=== PATIENT | female | born 1945 | race African-American/Black ===

== ENCOUNTER → 2024-05-08 09:53 | Outpatient (REF) | payer OTHER, SELFPAY | LOC: WDC 09:53 | PROVIDERS: ATTENDING PHYSICIAN Nurse Practitioner Adult Health; FAMILY PHYSICIAN Family Medicine | DX: N64.4 Mastodynia (principal) | CPT/HCPCS: 76642; 77061; 77065 ==

== ENCOUNTER → 2024-05-13 10:51 | Outpatient (REF) | payer OTHER, SELFPAY | LOC: HWRCS 10:51 | PROVIDERS: ATTENDING PHYSICIAN Nuclear Medicine Nuclear Cardiology; FAMILY PHYSICIAN Family Medicine | DX: I10 Essential (primary) hypertension (principal); I48.0 Paroxysmal atrial fibrillation; E11.9 Type 2 diabetes mellitus without complications; R06.02 Shortness of breath | CPT/HCPCS: 93306 ==

== ENCOUNTER → 2024-06-07 10:48 | Outpatient (REF) | payer OTHER, SELFPAY ==
[2024-06-07 16:00] LABS: % Basophils 0.5 % (0-2); % Eosinophils 0.9 % (0-6); % Immature Granulocytes 0.9 % (0-0.5); % Lymphocytes 25.6 % (20.5-51.1); % Monocytes 8.7 % (1.7-9.3); % Neutrophils 63.4 % (42.2-75.2); Absolute Eosinophils 0.1 10^3/uL (0-0.7); Absolute Immature Granulocytes 0.1 10^3/uL (0-0.05); Absolute Lymphocytes 1.5 10^3/uL (1.2-3.4); Absolute Monocytes 0.5 10^3/uL (0.1-0.6); Absolute Neutrophils 3.7 10^3/uL (1.4-6.5); Hemoglobin 8.6 g/dL (12.0-16.0); Mean Corp Hgb Conc. 30.7 g/dL (33.0-37.0); Mean Corpuscular Hgb 24.3 pg (27.0-31.0); Mean Corpuscular Volume 79.1 fL (81.0-99.0); Mean Platelet Volume 9.4 fL (7.4-10.4); Nucleated Red Blood Cells % 0 %; Platelet Count 454 10^3/uL (130-400); Red Blood Cell Count 3.54 10^6/uL (4.20-5.40); Red Cell Dist. Width 15.7 % (11.5-14.5); White Blood Cell Count 5.8 10^3/uL (4.8-10.8)
[2024-06-07 16:14] LABS: ALT (SGPT) 16 U/L (0-35); AST (SGOT) 20 U/L (14-36); Alkaline Phosphatase 78 U/L (38-126); Blood Urea Nitrogen 20 mg/dl (7-17); Calcium 10.8 mg/dl (8.4-10.2); Carbon Dioxide 28 mmol/L (22-30); Chloride 101 mmol/L (98-107); Glucose 179 mg/dl (70-99); Iron 34 ug/dl (37-170); Potassium 4.2 mmol/L (3.5-5.1); Sodium 139 mmol/L (135-145); Total Bilirubin 0.2 mg/dl (0.2-1.3); Total Protein 6.5 g/dl (6.3-8.2); eGFR > 60.00
[2024-06-07 16:23] LABS: Percent Saturation 9 % (20-50); Total Iron Binding Capacity 362 ug/dl (265-497)
[2024-06-07 16:46] LABS: Ferritin 8.4 ng/ml (11.1-264.0)
== END ==
LOC: HWLAB 10:48
PROVIDERS: ATTENDING PHYSICIAN Internal Medicine Hematology & Oncology; FAMILY PHYSICIAN Family Medicine
DX: C50.512 Malignant neoplasm of lower-outer quadrant of left female breast (principal); D50.9 Iron deficiency anemia, unspecified; E55.9 Vitamin D deficiency, unspecified
CPT/HCPCS: 36415; 80053; 82728; 83540; 83550; 85025

== ENCOUNTER → 2024-06-10 13:17 | Outpatient (REF) | payer OTHER, SELFPAY | LOC: HWRAD 13:17 | PROVIDERS: ATTENDING PHYSICIAN Pain Medicine Interventional Pain Medicine; FAMILY PHYSICIAN Family Medicine | DX: M54.16 Radiculopathy, lumbar region (principal) | CPT/HCPCS: 72131 ==

== ENCOUNTER → 2024-06-20 14:06 | Outpatient (REF) | payer OTHER, SELFPAY ==
[2024-06-20 14:10] LABS: % Basophils 0.2 % (0-2); % Eosinophils 0.7 % (0-6); % Immature Granulocytes 0.1 % (0-0.5); % Lymphocytes 19.4 % (20.5-51.1); % Monocytes 8.7 % (1.7-9.3); % Neutrophils 70.9 % (42.2-75.2); Absolute Eosinophils 0.1 10^3/uL (0-0.7); Absolute Lymphocytes 1.6 10^3/uL (1.2-3.4); Absolute Monocytes 0.7 10^3/uL (0.1-0.6); Hematocrit 29.5 % (37.0-47.0); Mean Corp Hgb Conc. 30.5 g/dL (33.0-37.0); Mean Corpuscular Hgb 24.5 pg (27.0-31.0); Mean Corpuscular Volume 80.2 fL (81.0-99.0); Mean Platelet Volume 8.4 fL (7.4-10.4); Platelet Count 489 10^3/uL (130-400); Red Blood Cell Count 3.68 10^6/uL (4.20-5.40); Red Cell Dist. Width 15.7 % (11.5-14.5); White Blood Cell Count 8.4 10^3/uL (4.8-10.8)
[2024-06-20 14:48] LABS: Iron 36 ug/dl (37-170)
[2024-06-20 14:57] LABS: Percent Saturation 9 % (20-50); Total Iron Binding Capacity 389 ug/dl (265-497)
[2024-06-20 15:25] LABS: Ferritin 5.8 ng/ml (11.1-264.0)
== END ==
LOC: OIDL 14:06
PROVIDERS: ATTENDING PHYSICIAN Internal Medicine Hematology & Oncology
DX: C50.512 Malignant neoplasm of lower-outer quadrant of left female breast (principal)
CPT/HCPCS: 82728; 83540; 83550; 85025

== ENCOUNTER → 2024-06-27 14:22 | Outpatient (REF) | payer OTHER, SELFPAY ==
[2024-06-27 14:44] LABS: % Basophils 0.4 % (0-2); % Eosinophils 1.3 % (0-6); % Immature Granulocytes 0.3 % (0-0.5); % Lymphocytes 17.3 % (20.5-51.1); % Monocytes 8.1 % (1.7-9.3); % Neutrophils 72.6 % (42.2-75.2); Absolute Eosinophils 0.1 10^3/uL (0-0.7); Absolute Lymphocytes 1.4 10^3/uL (1.2-3.4); Absolute Monocytes 0.6 10^3/uL (0.1-0.6); Absolute Neutrophils 5.8 10^3/uL (1.4-6.5); Hematocrit 29.3 % (37.0-47.0); Mean Corp Hgb Conc. 30.7 g/dL (33.0-37.0); Mean Corpuscular Hgb 25.7 pg (27.0-31.0); Mean Corpuscular Volume 83.7 fL (81.0-99.0); Mean Platelet Volume 9.2 fL (7.4-10.4); Nucleated Red Blood Cells % 0 %; Platelet Count 437 10^3/uL (130-400); Red Cell Dist. Width 18.3 % (11.5-14.5); White Blood Cell Count 7.9 10^3/uL (4.8-10.8)
== END ==
LOC: OIDL 14:22
PROVIDERS: ATTENDING PHYSICIAN Internal Medicine Hematology & Oncology
DX: C50.512 Malignant neoplasm of lower-outer quadrant of left female breast (principal); D50.9 Iron deficiency anemia, unspecified
CPT/HCPCS: 85025

== ENCOUNTER 2024-07-15 06:32 | Day surgery (SDC) | payer OTHER, SELFPAY ==
[2024-07-15 11:59] VITALS: BMI 43.2
[2024-07-15 12:00] VITALS: BP 167/96; BMI 43.2
[2024-07-15 12:34] LABS: Glucose - Point of Care 101 mg/dl (70-99)
[2024-07-15 14:03] VITALS: BP 104/52
[2024-07-15 14:15] VITALS: BP 121/55
[2024-07-15 14:22] VITALS: BP 127/102
[2024-07-15 14:24] VITALS: BP 126/62
== END 2024-07-15 14:40 | disposition home or self-care (01) ==
LOC: SDS 06:32
PROVIDERS: ATTENDING PHYSICIAN Internal Medicine
PROC: 0DB98ZX Excision of Duodenum, Via Natural or Artificial Opening Endoscopic, Diagnostic (ICD-10-PCS; 2024-07-15)
PROC: 0DB68ZX Excision of Stomach, Via Natural or Artificial Opening Endoscopic, Diagnostic (ICD-10-PCS; 2024-07-15)
DX: K31.7 Polyp of stomach and duodenum (principal); D50.9 Iron deficiency anemia, unspecified
CPT/HCPCS: 43239; 88305; 82962; 88342

== ENCOUNTER → 2024-08-23 11:11 | Outpatient (REF) | payer OTHER, SELFPAY | LOC: WDC 11:11 | PROVIDERS: ATTENDING PHYSICIAN Nurse Practitioner Adult Health; FAMILY PHYSICIAN Family Medicine | DX: Z12.31 Encounter for screening mammogram for malignant neoplasm of breast (principal) | CPT/HCPCS: 77063; 77067 ==

== ENCOUNTER 2024-12-23 10:36 | Emergency (ER) | payer OTHER, SELFPAY ==
[2024-12-23 10:41] VITALS: BP 165/78
--- NOTE | 2024-12-23 12:24 | ED.GENMED ---
History of Present Illness
General
Chief Complaint: Female Acute Care Physical Therapist/Gu symptoms
Time Seen by Provider: 12/23/24 11:31
History of Present Illness
History of Present Illness:
79-year-old female with history of diabetes presenting to the emergency department for concern of abscess. Patient reports swelling and discomfort to the right groin region. Notes that she had an abscess in that region several years ago that
required drainage. Notes some discomfort to the area. Last night, the area open, has been draining some fluid. She called her doctor who advised to come to the hospital. Denies any change in her blood sugar. Denies any abdominal pain, nausea,
vomiting, fever. Denies any additional acute medical complaints.
Past History
Past History
ED Past Medical History: Arrthythmia (Atrial fibrillation), Asthma, GERD, HTN, Hypercholesterolemia, NIDDM and Other (sleep apnea, paralyzed diaphragm right sided, GI bleeding. PNA, IBS)
ED Past Surgical History: Cholecystectomy, Gynecological (OOphorectomy ?L), Orthopedic (Right and left total hips) and Other (Polyps removed)
Social History
Tobacco: Non-smoker
Alcohol: None
Drug: None
Personal:
Living: with family
Phy Exam
Physical Exam
Physical Exam:
General: Well-appearing, no clinical signs of dehydration, nontoxic and in no acute distress
HEENT: protecting airway
Neck: appears supple
CV: Normal heart rate
Resp: No accessory muscle use, no increased work of breathing
Abd: No distention
Extremities: No deformities, no swelling
Neuro: alert, no focal neurologic deficit
: Small area of induration at the right inguinal region. No erythema. Central area that is open. No fluctuance. No purulence
Rectal: deferred
Psych: Normal affect
Skin: Intact
Course
Orders/Labs/Results
Orders:
Orders
12/23/24 12:05
Cephalexin Monohydrate [Keflex] 500 mg PO NOW STA
12/23/24 12:23
Bedside Glucose- Treatment ONCE
Abnormal Lab Results
12/23/24
12:23
POC Glucose 126 H mg/dl
(70-99)
12/23/24 12:05
Vital Signs
Initial and Last Documented VS:
Initial Vital Signs
Temp Pulse Resp BP Pulse Ox
98.4 F 82 18 165/78 96
12/23/24 10:41 12/23/24 10:41 12/23/24 10:41 12/23/24 10:41 12/23/24 10:41
Last Documented Vital Signs
Temp Pulse Resp BP Pulse Ox
98.4 F 82 18 165/78 96
12/23/24 10:41 12/23/24 10:41 12/23/24 10:41 12/23/24 10:41 12/23/24 10:41
MDM/Problems Addressed
MDM/Problems Addressed:
79-year-old female with history of diabetes presenting for concern of abscess to the right groin. Vital signs are significant for mild hypertension.
On exam patient is resting comfortably, no acute distress or discomfort. Evaluation of the groin, there is a small area of induration, consistent with developing abscess collection. No fluctuance on palpation. No active drainage, however is open.
Is not currently a candidate for incision and drainage given no palpable fluid collection. Patient has been using warm compresses, which I advised she continue. No crepitus to the area or extension into the abdomen or vaginal region. No concern
for Aguila's. Will start on antibiotic. Advised continued use of warm compresses. Will start on cephalexin. Return precautions communicated and patient verbalized understanding
*Critical Care Note
Total Time (30-74mins, 75-104mins- exclusive of procedures): Not Applicable
ED Attending Note
-
Portions of this chart may have been created with voice recognition software.� Occasional wrong word or��sound alike� substitutions may have occurred due to the inherent limitations of voice recognition software.
Discharge Plan
Departure
Prescriptions:
No Action
candesartan 8 MG tablet
16 mg PO HS
metformin 500 MG tablet
1,000 mg PO HS
esomeprazole magnesium [Nexium] 40 MG capsule,delayed release(DR/EC)
40 mg PO HS
diltiazem HCl 180 MG capsule,extended release 24hr
180 mg PO HS
olopatadine [Patanase] 30.5 GM spray,non-aerosol
2 spray intranasal BID Qty: 0
Xarelto 20 MG tablet
20 mg PO HS Qty: 0
ezetimibe 10 MG tablet
10 mg PO HS
cetirizine [Zyrtec] 10 mg Tablet
10 mg PO HS
fluticasone furoate-vilanterol [Breo Ellipta] 200-25 mcg/dose Blister With Device
1 inh INHALATION DAILY
letrozole 2.5 mg Tablet
2.5 mg PO DAILY
Referrals:
Florence Sotelo DO [Family Provider] -
Interventions
Interventions:
*Risk Screen - Suicide Last Done: 12/23/24 10:41
*General Assessment Last Done: 12/23/24 10:41
*Neglect/Abuse Screening Last Done: 12/23/24 10:41
*ED COVID-19 Vaccine History Last Done: 12/23/24 12:27
Discharge Date and Time
Print Language: SYRIAN
[2024-12-23 12:25] LABS: Glucose - Point of Care 126 mg/dl (70-99)
[2024-12-23 12:26] VITALS: BMI 42.4
[2024-12-23] MEDS: KEFLEX 500 MG PO (12:27)
[2024-12-23 12:29] VITALS: BP 143/65
== END 2024-12-23 12:55 | disposition home or self-care (01) ==
LOC: EMR 10:36
PROVIDERS: EMERGENCY PHYSICIAN Student in an Organized Health Care Education/Training Program; FAMILY PHYSICIAN Family Medicine
DX: L02.214 Cutaneous abscess of groin (principal); I48.91 Unspecified atrial fibrillation; J45.909 Unspecified asthma, uncomplicated; K21.9 Gastro-esophageal reflux disease without esophagitis; I10 Essential (primary) hypertension; E78.00 Pure hypercholesterolemia, unspecified; E11.9 Type 2 diabetes mellitus without complications; G47.30 Sleep apnea, unspecified; J98.6 Disorders of diaphragm; K58.9 Irritable bowel syndrome, unspecified
CPT/HCPCS: 99282; 82962

== ENCOUNTER → 2025-03-17 15:52 | Outpatient (REF) | payer OTHER, SELFPAY ==
[2025-03-17 14:31] LABS: % Basophils 0.2 % (0-2); % Eosinophils 1.4 % (0-6); % Immature Granulocytes 0.1 % (0-0.5); % Monocytes 8.2 % (1.7-9.3); % Neutrophils 68.1 % (42.2-75.2); Absolute Eosinophils 0.1 10^3/uL (0-0.7); Absolute Lymphocytes 1.8 10^3/uL (1.2-3.4); Absolute Monocytes 0.7 10^3/uL (0.1-0.6); Absolute Neutrophils 5.7 10^3/uL (1.4-6.5); Hematocrit 32.7 % (37.0-47.0); Hemoglobin 10.3 g/dL (12.0-16.0); Mean Corp Hgb Conc. 31.5 g/dL (33.0-37.0); Mean Corpuscular Hgb 26.9 pg (27.0-31.0); Mean Corpuscular Volume 85.4 fL (81.0-99.0); Mean Platelet Volume 8.5 fL (7.4-10.4); Platelet Count 422 10^3/uL (130-400); Red Blood Cell Count 3.83 10^6/uL (4.20-5.40); Red Cell Dist. Width 14.6 % (11.5-14.5); White Blood Cell Count 8.3 10^3/uL (4.8-10.8)
[2025-03-17 17:25] LABS: Vitamin D, 25-OH*** 20.5 ng/mL (30-80)
== END ==
LOC: OIDL 15:52
PROVIDERS: ATTENDING PHYSICIAN Internal Medicine Hematology & Oncology
DX: C50.512 Malignant neoplasm of lower-outer quadrant of left female breast (principal); D50.9 Iron deficiency anemia, unspecified; E55.9 Vitamin D deficiency, unspecified
CPT/HCPCS: 82306; 85025

== ENCOUNTER 2025-03-19 22:07 | Emergency (ER) | payer OTHER, SELFPAY ==
[2025-03-19 22:09] VITALS: BP 177/90
[2025-03-19 23:42] VITALS: BP 178/76; BMI 41.2
--- NOTE | 2025-03-20 00:11 | ED.GENMED ---
History of Present Illness
General
Chief Complaint: Headache
Source: patient
Exam Limitations: none
Time Seen by Provider: 03/19/25 23:54
Nursing documentation reviewed up to this point in time: agreed with
History of Present Illness
History of Present Illness:
SEE mdm
Past History
Past History
ED Past Medical History: Arrthythmia (Atrial fibrillation), Asthma, GERD, HTN, Hypercholesterolemia, NIDDM and Other (sleep apnea, paralyzed diaphragm right sided, GI bleeding. PNA, IBS)
ED Past Surgical History: Cholecystectomy, Gynecological (OOphorectomy ?L), Orthopedic (Right and left total hips) and Other (Polyps removed)
Social History
Tobacco: Non-smoker
Alcohol: None
Drug: None
Personal:
Living: with family
Review of Systems
Review of Systems
Allergies reviewed?: Yes
All Other Systems: Not applicable
Phy Exam
Physical Exam
Physical Exam:
GENERAL: Alert , in no apparent distress
HEAD: NCAT
no scalp tenderness;
EYE: pupils equal and reactive, no nystagmus, NO photophobia
proptosis b/l (chronic_)
NECK: Supple,full rom, nontender
ENT: o/p clr, mmm.
CARDIAC: Regular rate and rhythm . no edema
LUNGS: Clear breath sounds bilaterally, no acute respiratory distress, no wheezes/rales/rhonchi
ABDOMEN: Soft, without focal tenderness, no r/g, no cvat
NEUROLOGICAL: Alert and orientedx 4, cn intact, no facial asymmetry, 5/5 strength in UE/LE, sensation intact, romberg neg, ambulates without assistance, neg pronator drift
SKIN: Warm and dry, skin intact.
MUSCULOSKELETAL: No edema, well perfused.
PSYCH: Normal and appropriate interaction.
Course
Orders/Labs/Results
Orders:
Orders
03/20/25 00:14
CT Head W/o Iv Contrast Urgent
Comment:
Reason For Exam: aura with R sinus pressure
03/20/25 00:15
Electrocardiogram (*1) Urgent
Reason for Study: TIA/Stroke
EKG- Treatment ONCE
03/20/25 00:55
Visual Acuity- Treatment ONCE
03/20/25 01:10
Complete Blood Count/With Diff Urgent
Comprehensive Metabolic Panel Urgent
Abnormal Lab Results
03/20/25
01:10
RBC 3.94 L 10^6/uL
(4.20-5.40)
Hgb 10.7 L g/dL
(12.0-16.0)
Hct 32.9 L %
(37.0-47.0)
MCHC 32.5 L g/dL
(33.0-37.0)
RDW 14.9 H %
(11.5-14.5)
Plt Count 425 H 10^3/uL
(130-400)
Absolute Monos (auto) 0.8 H 10^3/uL
(0.1-0.6)
Lymphocytes % 20.4 L %
(20.5-51.1)
Chloride 108 H mmol/L
(98-107)
Glucose 126 H mg/dl
(70-99)
03/20/25 01:10
03/20/25 01:10
Vital Signs
Initial and Last Documented VS:
Initial Vital Signs
Temp Pulse Resp BP Pulse Ox
37.2 C 85 16 177/90 98
03/19/25 22:09 03/19/25 22:09 03/19/25 22:09 03/19/25 22:09 03/19/25 22:09
Last Documented Vital Signs
Temp Pulse Resp BP Pulse Ox
36.6 C 77 18 137/60 96
03/20/25 02:39 03/20/25 02:39 03/20/25 02:39 03/20/25 02:39 03/20/25 02:39
MDM/Problems Addressed
Differential Diagnosis Includes:
see MDM
MDM/Problems Addressed:
Note:
CHIEF COMPLAINT(S)
Ocular auras without headache; recent episodes of persistent auras.
HISTORY OF PRESENT ILLNESS
The patient is an 80-year-old female with a past medical history of migraines since adolescence (formerly got aura with pain, but for years has just gotten aura as squiggly white lines without pain. She reports 3 different episodes of aura lasting
10 minutes over the past 3 days which is unusual fo rher to have so many so frequently; the most recent one was this evening around 830 pm when she was home with family about to ty. These auras last around 10 minutes and involve seeing
squiggly lines, but do not result in complete vision loss The patient denies new headaches but reports nasal congestion and sinus pressure, has had previous sinus surgery and is alway scongested but she feels it is worse than usual recently;
no changes to medications. Shes taking letrozole for breast cancer, currently in remission for four years. She manages sinus issues with allergy medication. Additional history includes paroxysmal atrial fibrillation managed with blood thinners and
diabetes with stable glucose control.
SOCIAL DETERMINANTS AFFECTING HEALTH
According to the patient, her episodes coincide with familial activities around the house involving grandchildren, which may contribute to stress or distraction.
CHRONIC MEDICAL CONDITIONS SIGNIFICANTLY AFFECTING CARE
Chronic conditions affecting care: migraine history, atrial fibrillation, diabetes, and history of breast cancer.
ALLERGIES
The patient reports unspecified drug allergies.
PAST MEDICAL HISTORY
History of migraines, atrial fibrillation, diabetes, and breast cancer.
PAST SURGICAL HISTORY
Cataract surgery and previous sinus surgery.
SOCIAL HISTORY
The patient resides in a home and describes increased sinus pressures related to home layout changes, suggesting frequent home mobility.
MEDICATIONS
Letrozole for breast cancer; anticoagulant (unspecified); allergy medications.
REVIEW OF SYSTEMS
- Neurological: Reports vision disturbances (auras), no new headache.
- Cardiovascular: History of atrial fibrillation, no new palpitations reported.
- Gastrointestinal: Occasional diarrhea associated with episodes.
- Respiratory: Denies current respiratory infection but reports chronic nasal congestion and sinus pressure.
- Musculoskeletal: Undergoing physical therapy for rotator cuff tendinitis and hip issues.
PHYSICAL EXAM
- Nursing notes reviewed and vital signs reviewed.
- Neurological: No acute deficits observed by the patient during aura episodes.
- Ocular: Reports squiggly vision lines, primarily affecting the right eye.
DIFFERENTIAL DIAGNOSIS
The Differential Diagnosis includes, in no particular order and is not limited to:
1. Migraine with aura
2. Retinal migraine
3. Transient ischemic attack
4. Sinusitis
5. Visual disturbances secondary to medication or stress
6. Cluster headaches
7. Ophthalmic disorders such as vitreous detachment
8. Acute angle-closure glaucoma
9. Anxiety-related visual disturbances
10. Atrial fibrillation-related embolic events
PLAN
Further evaluation with ophthalmic examination and consider ophthalmological consultation. Assess need for imaging studies to rule out intracranial pathology. Review and possibly adjust current medications, including anticoagulation therapy, in
context of visual symptoms. Evaluate for possible sinus infection or exacerbation. Provide patient education on monitoring symptoms and seeking timely follow-up if symptoms persist or worsen.
03/20/2025 0054 AM
pressure R eye is 13, L eye is 10
EKG SINUS RHYUTHM, RBBB, NO ISCHEMIA
case d/w ed attending
h/o migraines with floaters/aura for years
but since teens she really doesn't get pains, just floating lights
her neuro exam is normal
eye exam unremarkable, normal vision, normal pressures
ct head neg
labs reassuring
not in afib and already anticoagulated
pt is anxious
feels reassured
sinus congestion more than usual; will cover with abx;
not concerned for GCA but recommend f/u with pcp
*Pulse Oximetry
SaO2: 98
Oxygen Mode of Delivery: Room air
Patient hypoxic: no (96)
*Critical Care Note
Total Time (30-74mins, 75-104mins- exclusive of procedures): Not Applicable
ED Attending Note
-
Portions of this chart may have been created with voice recognition software.� Occasional wrong word or��sound alike� substitutions may have occurred due to the inherent limitations of voice recognition software.
Discharge Plan
Departure
Patient Disposition: Home (Routine Discharge)
Date of Disposition: 03/20/25
Time of Disposition: 02:07
Patient with high blood pressure during this ER visit?: Yes
Condition: Fair
Covid-19: Not Applicable
Discharge Problem:
Floaters, Sinusitis
Instructions: Migraines (DC), Sinusitis in adults - ED discharge instructions
Prescriptions:
New
doxycycline hyclate 100 mg capsule
100 mg PO BID Qty: 14 0RF
No Action
esomeprazole magnesium [Nexium] 40 MG capsule,delayed release(DR/EC)
40 mg PO HS
diltiazem HCl 180 MG capsule,extended release 24hr
180 mg PO HS
ezetimibe 10 MG tablet
10 mg PO HS
cetirizine [Zyrtec] 10 mg Tablet
10 mg PO HS
fluticasone furoate-vilanterol [Breo Ellipta] 200-25 mcg/dose Blister With Device
1 inh INHALATION DAILY
metformin 1,000 mg Tablet
1,000 mg PO HS
candesartan 16 mg Tablet
8 mg PO HS
letrozole 2.5 mg Tablet
2.5 mg PO DAILY
olopatadine [Patanase] 0.6 % [place],Non-Aerosol
2 spray INTRANASAL BID
Xarelto 20 mg Tablet
20 mg PO HS
Referrals:
Florence Sotelo DO [Family Provider, Family Practice] - Follow up in 2-3 days
Activity Restrictions/Additional Instructions:
You should follow-up with your family doctor this week regarding your aura/headaches. Your vision was normal and your eye pressure was also normal. The CAT scan did not show any findings. Your blood pressure improved without intervention. You
had no signs of any concerning abnormalities on blood work. Your anemia is stable. Please make sure to try Tylenol if you develop a headache with the aura. It sounds like it is part of your migraine. Because of the increased congestion over the
last couple weeks I am going to prescribe your doxycycline that you can take twice a day for 7 days. Continue to use your nasal sprays and allergy medication. Return for significant worsening of symptoms, worst headache, vision loss or vision
changes, nausea or vomiting, numbness or tingling in your face arms or legs or any concerns
You can also make sure you see an eye doctor to have a more in-depth retinal exam
Interventions
Interventions:
*Risk Screen - Suicide Last Done: 03/19/25 22:09
*General Assessment Last Done: 03/19/25 23:37
*Neglect/Abuse Screening Last Done: 03/19/25 22:09
*ED- Fall Risk Assessment Last Done: 03/19/25 23:36
*ED COVID-19 Vaccine History Last Done: 03/19/25 23:39
*Nursing Disposition Last Done: 03/20/25 02:39
ED- Neurological Assessment Last Done: 03/19/25 23:35
Discharge Date and Time
Discharge Date/Time: 03/20/25 02:15
Print Language: PANAMANIAN
[2025-03-20 01:18] LABS: % Basophils 0.4 % (0-2); % Eosinophils 1.3 % (0-6); % Immature Granulocytes 0.3 % (0-0.5); % Lymphocytes 20.4 % (20.5-51.1); % Monocytes 8.9 % (1.7-9.3); % Neutrophils 68.7 % (42.2-75.2); Absolute Eosinophils 0.1 10^3/uL (0-0.7); Absolute Lymphocytes 1.9 10^3/uL (1.2-3.4); Absolute Monocytes 0.8 10^3/uL (0.1-0.6); Absolute Neutrophils 6.5 10^3/uL (1.4-6.5); Hematocrit 32.9 % (37.0-47.0); Hemoglobin 10.7 g/dL (12.0-16.0); Mean Corp Hgb Conc. 32.5 g/dL (33.0-37.0); Mean Corpuscular Hgb 27.2 pg (27.0-31.0); Mean Corpuscular Volume 83.5 fL (81.0-99.0); Mean Platelet Volume 8.5 fL (7.4-10.4); Nucleated Red Blood Cells % 0 %; Platelet Count 425 10^3/uL (130-400); Red Blood Cell Count 3.94 10^6/uL (4.20-5.40); Red Cell Dist. Width 14.9 % (11.5-14.5); White Blood Cell Count 9.4 10^3/uL (4.8-10.8)
[2025-03-20 01:40] LABS: ALT (SGPT) 17 U/L (0-35); AST (SGOT) 19 U/L (14-36); Albumin 4.2 g/dl (3.5-5.0); Alkaline Phosphatase 77 U/L (38-126); Blood Urea Nitrogen 14 mg/dl (7-17); Calcium 10.2 mg/dl (8.4-10.2); Carbon Dioxide 28 mmol/L (22-30); Chloride 108 mmol/L (98-107); Estimated Creatinine Clearance 76 ml/min; Glucose 126 mg/dl (70-99); Potassium 4.3 mmol/L (3.5-5.1); Sodium 143 mmol/L (135-145); Total Bilirubin 0.4 mg/dl (0.2-1.3); eGFR > 60.00
[2025-03-20 02:03] VITALS: BP 137/60
[2025-03-20 02:39] VITALS: BP 137/60
== END 2025-03-20 02:15 | disposition home or self-care (01) ==
LOC: EMR 22:07
PROVIDERS: Physician Assistant; EMERGENCY PHYSICIAN Emergency Medicine; FAMILY PHYSICIAN Family Medicine
DX: J32.9 Chronic sinusitis, unspecified (principal); H43.399 Other vitreous opacities, unspecified eye; E11.9 Type 2 diabetes mellitus without complications; E78.00 Pure hypercholesterolemia, unspecified; G47.30 Sleep apnea, unspecified; I10 Essential (primary) hypertension; J45.909 Unspecified asthma, uncomplicated; I48.0 Paroxysmal atrial fibrillation; Z85.3 Personal history of malignant neoplasm of breast; Z79.899 Other long term (current) drug therapy
CPT/HCPCS: 99284; 70450; 80053; 85025; 93005

== ENCOUNTER 2025-03-24 11:07 | Outpatient (RCR) | payer OTHER, SELFPAY ==
[2025-03-24 11:30] LABS: % Eosinophils 0.7 % (0-6); % Immature Granulocytes 0.3 % (0-0.5); % Monocytes 7.4 % (1.7-9.3); % Neutrophils 76.6 % (42.2-75.2); Absolute Eosinophils 0.1 10^3/uL (0-0.7); Absolute Lymphocytes 1.3 10^3/uL (1.2-3.4); Absolute Monocytes 0.6 10^3/uL (0.1-0.6); Absolute Neutrophils 6.6 10^3/uL (1.4-6.5); Hematocrit 31.9 % (37.0-47.0); Hemoglobin 10.2 g/dL (12.0-16.0); Mean Corpuscular Hgb 27.5 pg (27.0-31.0); Mean Platelet Volume 9.1 fL (7.4-10.4); Platelet Count 429 10^3/uL (130-400); Red Blood Cell Count 3.71 10^6/uL (4.20-5.40); Red Cell Dist. Width 15.6 % (11.5-14.5); White Blood Cell Count 8.6 10^3/uL (4.8-10.8)
[2025-03-24 12:19] LABS: Phosphorus 2.1 mg/dl (2.5-4.5)
== END 2025-03-24 23:59 | disposition home or self-care (01) ==
LOC: OID 11:07
PROVIDERS: ATTENDING PHYSICIAN Internal Medicine Hematology & Oncology
DX: D50.9 Iron deficiency anemia, unspecified (principal); C50.512 Malignant neoplasm of lower-outer quadrant of left female breast; E55.9 Vitamin D deficiency, unspecified
CPT/HCPCS: 84100; 85025

== ENCOUNTER → 2025-04-02 18:35 | Outpatient (REF) | payer OTHER, SELFPAY | LOC: MRI 18:35 | PROVIDERS: ATTENDING PHYSICIAN Family Medicine | DX: G43.109 Migraine with aura, not intractable, without status migrainosus (principal); H53.9 Unspecified visual disturbance | CPT/HCPCS: 70546; 70553; A9585 ==

== ENCOUNTER → 2025-04-17 09:58 | Outpatient (REF) | payer OTHER, SELFPAY | LOC: HWRAD 09:58 | PROVIDERS: ATTENDING PHYSICIAN Internal Medicine Hematology & Oncology; FAMILY PHYSICIAN Family Medicine; REFERRING PHYSICIAN Obstetrics & Gynecology Gynecology | DX: Z13.820 Encounter for screening for osteoporosis (principal); D50.9 Iron deficiency anemia, unspecified; E55.9 Vitamin D deficiency, unspecified; C50.512 Malignant neoplasm of lower-outer quadrant of left female breast; Z78.0 Asymptomatic menopausal state; M85.88 Other specified disorders of bone density and structure, other site | CPT/HCPCS: 77080 ==

== ENCOUNTER → 2025-08-26 11:48 | Outpatient (REF) | payer OTHER, SELFPAY | LOC: HWWDC 11:48 | PROVIDERS: ATTENDING PHYSICIAN Nurse Practitioner Adult Health; FAMILY PHYSICIAN Family Medicine | DX: Z12.31 Encounter for screening mammogram for malignant neoplasm of breast (principal) | CPT/HCPCS: 77063; 77067 ==